=== PATIENT | male | born 1965 | race Two or more races ===

== ENCOUNTER → 2023-11-01 | Outpatient (CLI) | payer OTHER | END | disposition home or self-care (01) | LOC: XYW 09:30 | PROVIDERS: ATTEND Specialist | DX: C34.90 Malignant neoplasm of unspecified part of unspecified bronchus or lung (principal); R91.1 Solitary pulmonary nodule; D73.89 Other diseases of spleen | CPT/HCPCS: 71250 ==

== ENCOUNTER 2024-01-03 13:55 | Inpatient (IN) | payer OTHER ==
[~2024-01-03] VITALS: Ht 172.7 cm; Wt 94.9 kg
[2024-01-03 15:25] VITALS: BP 131/94; PULSE 91; RESP 18; TEMP 98.4; O2SAT 97
[2024-01-03] MEDS ORDERED: NITROGLYCERIN 0.4 MG SL TAB SL PRN (15:30)
[2024-01-03 16:24] LABS: Basophils # (auto) 0 10 ^3/uL (0-0.2); Basophils % (auto) 0.3 % (0.0-2.0); Eosinophils # (auto) 0.1 10 ^3/uL (0-0.8); Hematocrit 42.6 % (41.0-53.0); Hemoglobin 14.8 g/dL (13.5-17.5); Lymphocytes # (auto) 1.6 10 ^3/uL (0.4-5.4); Lymphocytes % (auto) 24.7 % (10.0-50.0); Mean Corpuscular Hgb Conc. 34.7 g/dL (32.0-36.0); Mean Corpuscular Volume 89.4 fL (80.0-100.0); Monocytes # (auto) 0.6 10 ^3/uL (0-1.3); Monocytes % (auto) 8.7 % (0.0-12.0); Neutrophils # (auto) 4.3 10 ^3/uL (1.6-8.6); Neutrophils % (auto) 65.3 % (37.0-80.0); Nucleated Red Blood Cells % 0.2 %; Platelet Count (auto) 223 10^3/uL (140-450); Red Blood Cells 4.76 10^6/uL (4.5-5.90); Red Cell Distribution Width 13.3 % (11.8-14.3); White Blood Cell 6.6 10^3/uL (4.4-10.8)
[2024-01-03 16:42] LABS: Alanine Aminotransferase 17 U/L (7-40); Albumin 4.2 g/dL (3.2-4.8); Alkaline Phosphatase 93 U/L (46-116); Anion Gap 9 (5-15); Aspartate Aminotransferase 17 U/L (13-40); BUN/Creatinine Ratio 12.5 (10.0-20.0); Bilirubin, Total 1.1 mg/dL (0.2-1.0); Blood Urea Nitrogen 16 mg/dL (9-23); Calcium 9.5 mg/dL (8.7-10.4); Carbon Dioxide 28 mmol/L (20-30); Chloride 105 mmol/L (98-107); Glucose 92 mg/dL (74-106); Potassium 2.9 mmol/L (3.5-5.1); Sodium 142 mmol/L (136-145); Total Protein 6.9 g/dL (5.7-8.2)
[2024-01-03 16:43] LABS: INR 1.07 (0.9-1.15); Prothrombin Time 11.3 sec (9.3-11.8)
[2024-01-03 17:01] VITALS: BP 145/93; PULSE 85; PULSE 91; RESP 18; TEMP 97.9; O2SAT 95; O2SAT 96
[2024-01-03 17:03] VITALS: BP 131/94; PULSE 91; RESP 18; TEMP 98.4; O2SAT 97
[2024-01-03] MEDS ORDERED: AMLO1TAB22 PO (17:18)
[2024-01-03] MEDS ORDERED: HYDR25TA4 PO (17:18)
[2024-01-03] MEDS ORDERED: ASPI325T6 PO (17:18)
[2024-01-03 19:06] LABS: LDL Cholesterol 78 mg/dL (< 100); Triglycerides 120 mg/dL (< 150)
[2024-01-03 19:08] LABS: Cholesterol 143 mg/dL (< 200); HDL Cholesterol 39 mg/dL (40-59)
[2024-01-03] MEDS: POTASSIUM CHL 20 Meq TABLET PO ONE (19:08)
[2024-01-03 20:00] VITALS: PULSE 97
[2024-01-03 20:35] LABS: Urine Bacteria None Seen /hpf (None Seen); Urine WBC None Seen /hpf (0 - 3)
[2024-01-03 20:48] LABS: Urine Blood Negative /uL (Negative); Urine Clarity Clear (Clear); Urine Color Light-Yellow (Yellow); Urine Protein, UAD Negative (Negative); Urine Specific Gravity 1.013 (1.001-1.035); Urine Urobilinogen Normal (Negative); Urine pH 7.5 (5.0-9.0)
[2024-01-03 21:00] VITALS: BP 142/100; PULSE 65; RESP 17; TEMP 97.8; O2SAT 96
[2024-01-03] MEDS: traMADol HCL 50 MG TAB PO PRN (21:24)
[2024-01-03] MEDS: amLODIPine BESYLATE 5 MG TAB PO SCH (21:24)
[2024-01-04] VITALS (7 sets, daily range): BP systolic 118–137; BP diastolic 79–86; PULSE 64–99; RESP 16–18; TEMP 97.8–98.4; O2SAT 94–99
[2024-01-04 07:07] LABS: Anion Gap 6 (5-15); Calcium 9.6 mg/dL (8.7-10.4); Carbon Dioxide 30 mmol/L (20-30); Chloride 104 mmol/L (98-107); Potassium 3.3 mmol/L (3.5-5.1); Sodium 140 mmol/L (136-145)
[2024-01-04 07:13] LABS: BUN/Creatinine Ratio 14.7 (10.0-20.0); Blood Urea Nitrogen 19 mg/dL (9-23); Glucose 94 mg/dL (74-106)
[2024-01-04 07:14] LABS: Magnesium 2.2 mg/dL (1.6-2.6)
[2024-01-04] MEDS ORDERED: levoFLOXacin 500MG 100 ML IV SCH (10:00)
[2024-01-04] MEDS: ENOXAPARIN SOD 40 MG/0.4 ML SYRINGE SC SCH (10:00)
[2024-01-04] MEDS: levoFLOXacin 500MG 100 ML IV SCH (10:50)
[2024-01-04] MEDS: POTASSIUM CHL 20 Meq TABLET PO ONE (11:02)
[2024-01-04] MEDS ORDERED: IOHEXOL 300 MG/ML 100ML BOTTLE IJ ONE (12:29)
[2024-01-05] VITALS (9 sets, daily range): BP systolic 108–131; BP diastolic 66–86; PULSE 71–81; RESP 16–20; TEMP 97.5–98.6; O2SAT 95–98
[2024-01-05 07:26] LABS: Basophils # (auto) 0 10 ^3/uL (0-0.2); Basophils % (auto) 0.2 % (0.0-2.0); Eosinophils # (auto) 0.1 10 ^3/uL (0-0.8); Eosinophils % (auto) 1.5 % (0.0-7.0); Hematocrit 44.9 % (41.0-53.0); Hemoglobin 15.5 g/dL (13.5-17.5); Lymphocytes # (auto) 1.5 10 ^3/uL (0.4-5.4); Mean Corpuscular Hemoglobin 31.3 pg (28.0-32.0); Mean Corpuscular Hgb Conc. 34.6 g/dL (32.0-36.0); Mean Corpuscular Volume 90.6 fL (80.0-100.0); Monocytes # (auto) 0.5 10 ^3/uL (0-1.3); Neutrophils # (auto) 3.8 10 ^3/uL (1.6-8.6); Neutrophils % (auto) 64.3 % (37.0-80.0); Platelet Count (auto) 218 10^3/uL (140-450); Red Blood Cells 4.95 10^6/uL (4.5-5.90); Red Cell Distribution Width 13.6 % (11.8-14.3); White Blood Cell 5.9 10^3/uL (4.4-10.8)
[2024-01-05 07:34] LABS: Chloride 105 mmol/L (98-107); Potassium 3.4 mmol/L (3.5-5.1); Sodium 141 mmol/L (136-145)
[2024-01-05 07:35] LABS: Anion Gap 8 (5-15); Carbon Dioxide 28 mmol/L (20-30)
[2024-01-05 07:36] LABS: Calcium 9.4 mg/dL (8.7-10.4)
[2024-01-05 07:40] LABS: BUN/Creatinine Ratio 13.4 (10.0-20.0); Blood Urea Nitrogen 17 mg/dL (9-23); Glucose 86 mg/dL (74-106)
[2024-01-05] MEDS: POTASSIUM CHL 20 Meq TABLET PO ONE (22:34)
[2024-01-06] VITALS (7 sets, daily range): BP systolic 118–134; BP diastolic 77–89; PULSE 69–82; RESP 16–20; TEMP 98–98.7; O2SAT 93–98
[2024-01-06 06:21] LABS: Basophils # (auto) 0 10 ^3/uL (0-0.2); Basophils % (auto) 0.3 % (0.0-2.0); Eosinophils # (auto) 0.1 10 ^3/uL (0-0.8); Eosinophils % (auto) 2.2 % (0.0-7.0); Hematocrit 44.4 % (41.0-53.0); Hemoglobin 15.3 g/dL (13.5-17.5); Lymphocytes # (auto) 1.7 10 ^3/uL (0.4-5.4); Lymphocytes % (auto) 29.2 % (10.0-50.0); Mean Corpuscular Hemoglobin 31.4 pg (28.0-32.0); Mean Corpuscular Hgb Conc. 34.5 g/dL (32.0-36.0); Mean Corpuscular Volume 90.8 fL (80.0-100.0); Monocytes # (auto) 0.5 10 ^3/uL (0-1.3); Monocytes % (auto) 8.7 % (0.0-12.0); Neutrophils # (auto) 3.5 10 ^3/uL (1.6-8.6); Neutrophils % (auto) 59.6 % (37.0-80.0); Nucleated Red Blood Cells % 0.1 %; Platelet Count (auto) 211 10^3/uL (140-450); Red Blood Cells 4.89 10^6/uL (4.5-5.90); Red Cell Distribution Width 13.5 % (11.8-14.3); White Blood Cell 5.8 10^3/uL (4.4-10.8)
[2024-01-06 06:35] LABS: Alanine Aminotransferase 13 U/L (7-40); Albumin 3.9 g/dL (3.2-4.8); Alkaline Phosphatase 93 U/L (46-116); Anion Gap 5 (5-15); Aspartate Aminotransferase 16 U/L (13-40); BUN/Creatinine Ratio 12.9 (10.0-20.0); Bilirubin, Total 0.7 mg/dL (0.2-1.0); Blood Urea Nitrogen 16 mg/dL (9-23); Calcium 9.3 mg/dL (8.7-10.4); Carbon Dioxide 28 mmol/L (20-30); Chloride 107 mmol/L (98-107); Glucose 94 mg/dL (74-106); Sodium 140 mmol/L (136-145); Total Protein 6.6 g/dL (5.7-8.2)
[2024-01-06] MEDS: DOBUTamine 1000MCG/ML 100 ML IV ONE ×2 (09:55→10:16)
[2024-01-06] MEDS: DOBUTamine 1000MCG/ML 250 ML IV ONE (10:03)
[2024-01-06] MEDS: METOPROLOL TARTRATE 1MG/1ML-5ML VIAL IV ONE (10:05)
[2024-01-06] MEDS: ATROPINE SULF 0.5 MG/5ML SYR ONE (10:06)
[2024-01-06] MEDS ORDERED: GADOTERATE MEG 10 MMOL/20ml INJ (0.5MMOL/ml) IV ONE (10:40)
[2024-01-07] VITALS (7 sets, daily range): BP systolic 116–137; BP diastolic 73–91; PULSE 76–100; RESP 17–20; TEMP 98–98.3; O2SAT 94–98
[2024-01-07 03:45] LABS: Basophils # (auto) 0 10 ^3/uL (0-0.2); Basophils % (auto) 0.5 % (0.0-2.0); Eosinophils # (auto) 0.1 10 ^3/uL (0-0.8); Eosinophils % (auto) 2.2 % (0.0-7.0); Hematocrit 43.9 % (41.0-53.0); Hemoglobin 15.3 g/dL (13.5-17.5); Lymphocytes # (auto) 1.5 10 ^3/uL (0.4-5.4); Lymphocytes % (auto) 23.5 % (10.0-50.0); Mean Corpuscular Hemoglobin 31.6 pg (28.0-32.0); Mean Corpuscular Hgb Conc. 34.7 g/dL (32.0-36.0); Mean Corpuscular Volume 91.1 fL (80.0-100.0); Monocytes # (auto) 0.5 10 ^3/uL (0-1.3); Monocytes % (auto) 7.5 % (0.0-12.0); Neutrophils # (auto) 4.3 10 ^3/uL (1.6-8.6); Neutrophils % (auto) 66.3 % (37.0-80.0); Platelet Count (auto) 215 10^3/uL (140-450); Red Blood Cells 4.82 10^6/uL (4.5-5.90); Red Cell Distribution Width 13.6 % (11.8-14.3); White Blood Cell 6.6 10^3/uL (4.4-10.8)
[2024-01-07 03:57] LABS: Alanine Aminotransferase 14 U/L (7-40); Albumin 3.9 g/dL (3.2-4.8); Alkaline Phosphatase 94 U/L (46-116); Anion Gap 5 (5-15); Aspartate Aminotransferase 17 U/L (13-40); BUN/Creatinine Ratio 10.5 (10.0-20.0); Bilirubin, Total 1.1 mg/dL (0.2-1.0); Blood Urea Nitrogen 14 mg/dL (9-23); Calcium 9.3 mg/dL (8.7-10.4); Carbon Dioxide 27 mmol/L (20-30); Chloride 106 mmol/L (98-107); Glucose 98 mg/dL (74-106); Potassium 3.6 mmol/L (3.5-5.1); Sodium 138 mmol/L (136-145); Total Protein 6.6 g/dL (5.7-8.2)
[2024-01-07 03:59] LABS: INR 1.08 (0.9-1.15); Partial Thromboplastin Time 29.1 SEC (24.5-34.5); Prothrombin Time 11.4 sec (9.3-11.8)
[2024-01-07 05:05] LABS: Urine Bacteria FEW /hpf (None Seen); Urine Blood Negative /uL (Negative); Urine Clarity Clear (Clear); Urine Color Yellow (Yellow); Urine Mucus FEW (None Seen); Urine Protein, UAD Negative (Negative); Urine Specific Gravity 1.025 (1.001-1.035); Urine Sperm PRESENT /hpf (None Seen); Urine Urobilinogen Normal (Negative); Urine WBC 1 /hpf (0 - 3); Urine pH 5.5 (5.0-9.0)
[2024-01-07] MEDS: PANTOPRAZOLE 40 MG/10 ML VIAL INJ IV ONE (07:41)
[2024-01-07 08:06] LABS: PSA Free 0.15 ng/mL; Prostate Specific Antigen 0.8 ng/mL (0.0-4.0)
[2024-01-07] MEDS ORDERED: GADOTERATE MEG 10 MMOL/20ml INJ (0.5MMOL/ml) IV ONE (08:42)
[2024-01-07] MEDS ORDERED: MIDAZOLAM HCL 2MG/2ML 2ml VIAL (1mg/ml) ONE (11:51)
[2024-01-07] MEDS ORDERED: fentaNYL CITRATE 100 MCG/2 ML VL ONE (11:51)
[2024-01-07] MEDS ORDERED: MEPERIDINE HCL (50 MG/ML) 1 ML VIAL ONE (11:51)
[2024-01-07] MEDS: ceFAZolin 2 GM/D5W50ml 50 ML IV ONE (12:08)
[2024-01-07] MEDS: LIDOCAINE W/ EPINEPHRINE 1% 20ML VIAL ONE (12:10)
[2024-01-07] MEDS ORDERED: DexAMETHasone SOD PHOS 10MG/1ML VIAL INJ ONE (12:15)
[2024-01-07] MEDS ORDERED: PROPOFOL 10 MG/ML 20 ML IV ONE (12:29)
[2024-01-07] MEDS: BACITRACIN TOP OINT 1 UD PKG TOP ONE (13:17)
[2024-01-07] MEDS ORDERED: MIDAZOLAM HCL 2MG/2ML 2ml VIAL (1mg/ml) IV PRN (13:45)
[2024-01-07] MEDS ORDERED: ePHEDrine SULFATE 50 MG/ML AMP IV PRN (13:45)
[2024-01-07] MEDS: ONDANSETRON HCL 4 MG/2 ML VIAL IV ONE (13:45)
[2024-01-07] MEDS ORDERED: MORPHINE SULFATE 4 MG/ML SYR/VIAL IV PRN (13:45)
[2024-01-07] MEDS: HYDROmorphone HCL 2 MG/ML VL/or syr IV PRN (14:10)
[2024-01-07] MEDS: ceFAZolin 1GM/50ML 50 ML IV SCH (16:06)
[2024-01-07] MEDS: ACETAMINOPHEN 325 MG TAB PO PRN (22:36)
[2024-01-07] MEDS: KETOROLAC TROMETH 30 MG/ML 1ML VIAL IV ONE (23:07)
[2024-01-08] VITALS (7 sets, daily range): BP systolic 115–138; BP diastolic 72–87; PULSE 73–87; RESP 16–21; TEMP 97.7–98.7; O2SAT 92–95
[2024-01-08] MEDS: MORPHINE SULFATE INJ 2 MG/ml SYRG IV ONE (04:33)
[2024-01-08] MEDS: PANTOPRAZOLE 40 MG/10 ML VIAL INJ IV SCH (09:17)
[2024-01-08 09:18] LABS: Basophils # (auto) 0 10 ^3/uL (0-0.2); Basophils % (auto) 0.2 % (0.0-2.0); Eosinophils # (auto) 0 10 ^3/uL (0-0.8); Hematocrit 44.5 % (41.0-53.0); Hemoglobin 15.2 g/dL (13.5-17.5); Lymphocytes # (auto) 0.8 10 ^3/uL (0.4-5.4); Lymphocytes % (auto) 6.1 % (10.0-50.0); Mean Corpuscular Hgb Conc. 34.2 g/dL (32.0-36.0); Mean Corpuscular Volume 90.6 fL (80.0-100.0); Monocytes # (auto) 0.7 10 ^3/uL (0-1.3); Monocytes % (auto) 5.3 % (0.0-12.0); Neutrophils # (auto) 11.1 10 ^3/uL (1.6-8.6); Neutrophils % (auto) 88.4 % (37.0-80.0); Nucleated Red Blood Cells % 0.1 %; Platelet Count (auto) 231 10^3/uL (140-450); Red Blood Cells 4.91 10^6/uL (4.5-5.90); Red Cell Distribution Width 13.6 % (11.8-14.3); White Blood Cell 12.5 10^3/uL (4.4-10.8)
[2024-01-08] MEDS: MORPHINE SULFATE INJ 2 MG/ml SYRG IV PRN (09:27)
[2024-01-08 09:39] LABS: Alanine Aminotransferase 13 U/L (7-40); Albumin 4.5 g/dL (3.2-4.8); Alkaline Phosphatase 107 U/L (46-116); Anion Gap 8 (5-15); Aspartate Aminotransferase 20 U/L (13-40); BUN/Creatinine Ratio 13.2 (10.0-20.0); Blood Urea Nitrogen 17 mg/dL (9-23); Calcium 9.7 mg/dL (8.7-10.4); Carbon Dioxide 24 mmol/L (20-30); Chloride 107 mmol/L (98-107); Glucose 104 mg/dL (74-106); Potassium 3.6 mmol/L (3.5-5.1); Sodium 139 mmol/L (136-145)
[2024-01-08 09:40] LABS: Total Protein 7.2 g/dL (5.7-8.2)
[2024-01-09] VITALS (7 sets, daily range): BP systolic 118–131; BP diastolic 75–87; PULSE 60–83; RESP 16–21; TEMP 97.4–98.6; O2SAT 92–97
[2024-01-09] MEDS: DOCUSATE SOD 100 MG CAP PO PRN (00:20)
[2024-01-09 05:23] LABS: Basophils # (auto) 0 10 ^3/uL (0-0.2); Basophils % (auto) 0.2 % (0.0-2.0); Eosinophils # (auto) 0 10 ^3/uL (0-0.8); Eosinophils % (auto) 0.3 % (0.0-7.0); Hematocrit 40.8 % (41.0-53.0); Lymphocytes % (auto) 24.5 % (10.0-50.0); Mean Corpuscular Hemoglobin 31.2 pg (28.0-32.0); Mean Corpuscular Hgb Conc. 34.4 g/dL (32.0-36.0); Mean Corpuscular Volume 90.6 fL (80.0-100.0); Monocytes # (auto) 0.6 10 ^3/uL (0-1.3); Monocytes % (auto) 7.6 % (0.0-12.0); Neutrophils # (auto) 5.5 10 ^3/uL (1.6-8.6); Neutrophils % (auto) 67.4 % (37.0-80.0); Platelet Count (auto) 200 10^3/uL (140-450); Red Cell Distribution Width 13.9 % (11.8-14.3); White Blood Cell 8.1 10^3/uL (4.4-10.8)
[2024-01-09 05:40] LABS: Chloride 109 mmol/L (98-107); Potassium 3.6 mmol/L (3.5-5.1); Sodium 141 mmol/L (136-145)
[2024-01-09 05:41] LABS: Anion Gap 8 (5-15); Carbon Dioxide 24 mmol/L (20-30)
[2024-01-09 05:42] LABS: Calcium 8.8 mg/dL (8.7-10.4)
[2024-01-09 05:46] LABS: BUN/Creatinine Ratio 11.6 (10.0-20.0); Blood Urea Nitrogen 14 mg/dL (9-23); Glucose 92 mg/dL (74-106)
[2024-01-10] VITALS (7 sets, daily range): BP systolic 127–141; BP diastolic 81–86; PULSE 65–74; RESP 15–21; TEMP 97.8–98.7; O2SAT 21–96
[2024-01-10] MEDS: MORPHINE SULFATE INJ 2 MG/ml SYRG IV PRN (05:24)
[2024-01-11 01:00] VITALS: BP 130/82; PULSE 68; RESP 21; TEMP 98.1; O2SAT 97
[2024-01-11 05:00] VITALS: BP 142/90; PULSE 77; RESP 20; TEMP 97.9; O2SAT 96
[2024-01-11 05:22] LABS: Basophils # (auto) 0 10 ^3/uL (0-0.2); Basophils % (auto) 0.4 % (0.0-2.0); Eosinophils # (auto) 0.1 10 ^3/uL (0-0.8); Eosinophils % (auto) 1.9 % (0.0-7.0); Hematocrit 44.8 % (41.0-53.0); Hemoglobin 15.6 g/dL (13.5-17.5); Lymphocytes # (auto) 1.6 10 ^3/uL (0.4-5.4); Lymphocytes % (auto) 23.8 % (10.0-50.0); Mean Corpuscular Hemoglobin 31.6 pg (28.0-32.0); Mean Corpuscular Hgb Conc. 34.7 g/dL (32.0-36.0); Monocytes # (auto) 0.5 10 ^3/uL (0-1.3); Monocytes % (auto) 7.3 % (0.0-12.0); Neutrophils # (auto) 4.4 10 ^3/uL (1.6-8.6); Neutrophils % (auto) 66.6 % (37.0-80.0); Platelet Count (auto) 202 10^3/uL (140-450); Red Blood Cells 4.93 10^6/uL (4.5-5.90); Red Cell Distribution Width 13.6 % (11.8-14.3); White Blood Cell 6.7 10^3/uL (4.4-10.8)
[2024-01-11 05:31] LABS: Chloride 106 mmol/L (98-107); Potassium 3.6 mmol/L (3.5-5.1); Sodium 139 mmol/L (136-145)
[2024-01-11 05:32] LABS: Anion Gap 4 (5-15); Calcium 9.1 mg/dL (8.7-10.4); Carbon Dioxide 29 mmol/L (20-30)
[2024-01-11 05:37] LABS: BUN/Creatinine Ratio 10.5 (10.0-20.0); Blood Urea Nitrogen 12 mg/dL (9-23); Glucose 90 mg/dL (74-106)
[2024-01-11 08:32] VITALS: BP 113/78; PULSE 79; RESP 18; TEMP 98; O2SAT 94
[2024-01-11] MEDS: LACTULOSE 20Gm/30ML SOLN PO ONE (10:10)
[2024-01-11 12:30] VITALS: BP 139/89; PULSE 70; RESP 19; TEMP 97.9; O2SAT 97
[2024-01-11 16:44] VITALS: BP 135/83; PULSE 81; RESP 19; TEMP 97.6; O2SAT 94
[2024-01-11 21:00] VITALS: BP 121/84; PULSE 73; RESP 18; TEMP 98.1; O2SAT 96
[2024-01-12] VITALS (7 sets, daily range): BP systolic 127–133; BP diastolic 78–90; PULSE 74–80; RESP 18–19; TEMP 97.9–99.1; O2SAT 95–98
[2024-01-13] VITALS (8 sets, daily range): BP systolic 117–140; BP diastolic 74–93; PULSE 66–82; RESP 11–20; TEMP 98–98.6; O2SAT 95–97
[2024-01-13 03:29] LABS: Urine Bacteria None Seen /hpf (None Seen); Urine WBC None Seen /hpf (0 - 3)
[2024-01-13 03:34] LABS: Urine Blood Negative /uL (Negative); Urine Clarity Clear (Clear); Urine Color Light-Yellow (Yellow); Urine Protein, UAD Negative (Negative); Urine Urobilinogen Normal (Negative); Urine pH 6.5 (5.0-9.0)
[2024-01-13 05:44] LABS: Basophils # (auto) 0 10 ^3/uL (0-0.2); Basophils % (auto) 0.4 % (0.0-2.0); Eosinophils # (auto) 0.1 10 ^3/uL (0-0.8); Eosinophils % (auto) 2.9 % (0.0-7.0); Hematocrit 43.7 % (41.0-53.0); Hemoglobin 15.2 g/dL (13.5-17.5); Lymphocytes # (auto) 1.5 10 ^3/uL (0.4-5.4); Mean Corpuscular Hemoglobin 31.6 pg (28.0-32.0); Mean Corpuscular Hgb Conc. 34.8 g/dL (32.0-36.0); Mean Corpuscular Volume 90.7 fL (80.0-100.0); Monocytes # (auto) 0.5 10 ^3/uL (0-1.3); Monocytes % (auto) 10.1 % (0.0-12.0); Neutrophils % (auto) 57.6 % (37.0-80.0); Platelet Count (auto) 195 10^3/uL (140-450); Red Blood Cells 4.82 10^6/uL (4.5-5.90); Red Cell Distribution Width 13.4 % (11.8-14.3); White Blood Cell 5.1 10^3/uL (4.4-10.8)
[2024-01-13 05:51] LABS: Calcium 9.1 mg/dL (8.7-10.4); Chloride 107 mmol/L (98-107); Potassium 3.6 mmol/L (3.5-5.1); Sodium 140 mmol/L (136-145)
[2024-01-13 05:52] LABS: Anion Gap 5 (5-15); Carbon Dioxide 28 mmol/L (20-30)
[2024-01-13 05:57] LABS: BUN/Creatinine Ratio 8.5 (10.0-20.0); Blood Urea Nitrogen 10 mg/dL (9-23); Glucose 88 mg/dL (74-106)
[2024-01-13] MEDS ORDERED: ACETAMINOPHEN IV 1000 MG/100ML (10MG/ML) IV ONE (12:30)
[2024-01-13] MEDS ORDERED: CELECOXIB 100 MG CAP PO ONE (12:30)
[2024-01-13] MEDS ORDERED: GABAPENTIN 400 MG CAP PO ONE (12:30)
[2024-01-13] MEDS ORDERED: ONDANSETRON HCL 4 MG/2 ML VIAL ONE (12:35)
[2024-01-13] MEDS ORDERED: LIDOCAINE 2% (LOCAL ANESTH.) PF 5ml SDV ONE (12:35)
[2024-01-13] MEDS ORDERED: DexAMETHasone SOD PHOS 10MG/1ML VIAL INJ ONE ×2 (12:35→12:42)
[2024-01-13] MEDS ORDERED: KETOROLAC TROMETH 30 MG/ML 1ML VIAL ONE (12:35)
[2024-01-13] MEDS ORDERED: SUGAMMADEX 200mg/2ml Vial (100MG/ML) IV ONE (12:36)
[2024-01-13] MEDS ORDERED: ROCURONIUM 10MG/ML 10ML VIAL IV ONE (12:36)
[2024-01-13] MEDS ORDERED: KETAMINE 50mg/ML 1ml syringe ONE (12:36)
[2024-01-13] MEDS ORDERED: PROPOFOL 10 MG/ML 20 ML IV ONE (12:36)
[2024-01-13] MEDS ORDERED: GLYCOPYRROLATE 0.2 MG/ML 1ML VIAL ONE (12:36)
[2024-01-13] MEDS ORDERED: fentaNYL CITRATE 100 MCG/2 ML VL ONE (12:36)
[2024-01-13] MEDS ORDERED: LIDOCAINE 2% JELLY 11ml (GLYDO) ONE (12:45)
[2024-01-13] MEDS ORDERED: LIDOCAINE W/ EPINEPHRINE 1% 20ML VIAL ONE (13:20)
[2024-01-13] MEDS ORDERED: BUPIVACAINE 0.25% INJ 50ML VIAL ONE ×2 (13:20→13:25)
[2024-01-13] MEDS ORDERED: MANNITOL FTV 25% 12.5 GM/50 ML 0 ML IV ONE (13:20)
[2024-01-13] MEDS ORDERED: cefTRIAXone 1GM/50ML D5W 50 ML IV ONE (13:44)
[2024-01-13] MEDS ORDERED: ESMOLOL HCL 10 ML IV ONE (14:10)
[2024-01-13] MEDS ORDERED: ePHEDrine SULFATE 50 MG/ML AMP ONE (14:49)
[2024-01-13] MEDS ORDERED: HYDROmorphone HCL 2 MG/ML VL/or syr ONE (15:52)
[2024-01-13] MEDS: HYDROmorphone HCL 2 MG/ML VL/or syr IV PRN (16:00)
[2024-01-13] MEDS ORDERED: MORPHINE SULFATE 4 MG/ML SYR/VIAL IV PRN (16:15)
[2024-01-13] MEDS ORDERED: MIDAZOLAM HCL 2MG/2ML 2ml VIAL (1mg/ml) IV PRN (16:15)
[2024-01-13] MEDS ORDERED: ePHEDrine SULFATE 50 MG/ML AMP IV PRN (16:15)
[2024-01-13] MEDS ORDERED: ONDANSETRON HCL 4 MG/2 ML VIAL IV ONE (16:15)
[2024-01-13] MEDS: LACTATED RINGER'S 1,000 ML IV SCH (22:25)
[2024-01-13] MEDS: MAALOX PLUS or MAALOX 30 ML PO PRN (22:57)
[2024-01-14] VITALS (8 sets, daily range): BP systolic 137–153; BP diastolic 84–98; PULSE 81–94; RESP 17–20; TEMP 98.1–99.3; O2SAT 93–98
[2024-01-14 06:38] LABS: Hematocrit 42.4 % (41.0-53.0); Mean Corpuscular Hemoglobin 31.9 pg (28.0-32.0); Mean Corpuscular Hgb Conc. 35.3 g/dL (32.0-36.0); Mean Corpuscular Volume 90.5 fL (80.0-100.0); Platelet Count (auto) 199 10^3/uL (140-450); Red Blood Cells 4.69 10^6/uL (4.5-5.90); Red Cell Distribution Width 13.5 % (11.8-14.3); White Blood Cell 12.3 10^3/uL (4.4-10.8)
[2024-01-14 06:39] LABS: Anion Gap 8 (5-15); Calcium 9.8 mg/dL (8.7-10.4); Carbon Dioxide 26 mmol/L (20-30); Chloride 103 mmol/L (98-107); Potassium 3.8 mmol/L (3.5-5.1); Sodium 137 mmol/L (136-145)
[2024-01-14 06:45] LABS: BUN/Creatinine Ratio 8.9 (10.0-20.0); Blood Urea Nitrogen 19 mg/dL (9-23); Glucose 126 mg/dL (74-106)
[2024-01-14 07:02] LABS: Basophils % (manual) 0 (0.0-2.0); Blast Cells 0; Eosinophils % (manual) 0 (0-7); Metamyelocytes % 0; Myelocytes % 0; Promyelocytes % 0; Reactive Lymphocytes 0
[2024-01-14] MEDS ORDERED: METOCLOPRAMIDE HCL 5MG/ml INJ 2ml VIAL IV PRN (08:00)
[2024-01-14 08:30] LABS: Band Neutrophils % (manual) 4; Lymphocytes % (manual) 5 (10.0-50.0); Monocytes % (manual) 1 (0-12)
[2024-01-14 08:31] LABS: Platelet Estimate Adequate
[2024-01-14] MEDS: LACTULOSE 20Gm/30ML SOLN PO SCH (09:56)
[2024-01-14] MEDS: HYDROcodone-ACET 10/325MG TAB PO PRN (20:21)
[2024-01-15 01:00] VITALS: BP 136/80; PULSE 80; RESP 18; TEMP 98.7; O2SAT 94
[2024-01-15 04:58] VITALS: BP 122/77; PULSE 78; RESP 18; TEMP 97.3; O2SAT 93
[2024-01-15 05:13] LABS: Basophils # (auto) 0 10 ^3/uL (0-0.2); Basophils % (auto) 0.4 % (0.0-2.0); Eosinophils # (auto) 0 10 ^3/uL (0-0.8); Eosinophils % (auto) 0.2 % (0.0-7.0); Hematocrit 41.7 % (41.0-53.0); Hemoglobin 14.6 g/dL (13.5-17.5); Lymphocytes # (auto) 1.3 10 ^3/uL (0.4-5.4); Lymphocytes % (auto) 12.4 % (10.0-50.0); Mean Corpuscular Hemoglobin 31.5 pg (28.0-32.0); Mean Corpuscular Volume 89.9 fL (80.0-100.0); Monocytes # (auto) 0.8 10 ^3/uL (0-1.3); Monocytes % (auto) 7.8 % (0.0-12.0); Neutrophils # (auto) 8.4 10 ^3/uL (1.6-8.6); Neutrophils % (auto) 79.2 % (37.0-80.0); Nucleated Red Blood Cells % 0.1 %; Platelet Count (auto) 170 10^3/uL (140-450); Red Blood Cells 4.63 10^6/uL (4.5-5.90); Red Cell Distribution Width 13.5 % (11.8-14.3); White Blood Cell 10.6 10^3/uL (4.4-10.8)
[2024-01-15 05:23] LABS: Anion Gap 7 (5-15); Carbon Dioxide 27 mmol/L (20-30); Chloride 106 mmol/L (98-107); Potassium 3.8 mmol/L (3.5-5.1); Sodium 140 mmol/L (136-145)
[2024-01-15 05:24] LABS: Calcium 9.4 mg/dL (8.7-10.4)
[2024-01-15 05:29] LABS: BUN/Creatinine Ratio 8.4 (10.0-20.0); Blood Urea Nitrogen 17 mg/dL (9-23); Glucose 98 mg/dL (74-106)
[2024-01-15 08:00] VITALS: BP 142/87; PULSE 84; RESP 16; TEMP 98.8; O2SAT 94
[2024-01-15] MEDS: METOPROLOL SUCCINATE XL 50 MG TAB PO SCH (09:12)
[2024-01-15 11:30] VITALS: BP_SYST 133; BP_SYST 168; BP_DIAS 81; BP_DIAS 90; PULSE 47; RESP 16; TEMP 98.6; O2SAT 98
[2024-01-15 16:38] VITALS: BP 133/89; PULSE 84; RESP 17; TEMP 98.8; O2SAT 98
[2024-01-15] MEDS: LACTULOSE 20Gm/30ML SOLN PO SCH (17:29)
[2024-01-15] MEDS: DOCUSATE SOD 100 MG CAP PO SCH (17:29)
[2024-01-15 21:00] VITALS: BP 150/99; PULSE 89; RESP 20; TEMP 98.3; O2SAT 93
[2024-01-16] VITALS (7 sets, daily range): BP systolic 136–151; BP diastolic 85–101; PULSE 81–107; RESP 16–20; TEMP 98–99.8; O2SAT 93–95
[2024-01-16 06:48] LABS: Basophils # (auto) 0 10 ^3/uL (0-0.2); Basophils % (auto) 0.1 % (0.0-2.0); Eosinophils # (auto) 0 10 ^3/uL (0-0.8); Eosinophils % (auto) 0.4 % (0.0-7.0); Hematocrit 40.4 % (41.0-53.0); Hemoglobin 14.2 g/dL (13.5-17.5); Lymphocytes # (auto) 1.2 10 ^3/uL (0.4-5.4); Lymphocytes % (auto) 11.5 % (10.0-50.0); Mean Corpuscular Hemoglobin 31.9 pg (28.0-32.0); Mean Corpuscular Hgb Conc. 35.2 g/dL (32.0-36.0); Mean Corpuscular Volume 90.5 fL (80.0-100.0); Monocytes # (auto) 0.8 10 ^3/uL (0-1.3); Monocytes % (auto) 7.9 % (0.0-12.0); Neutrophils # (auto) 8.1 10 ^3/uL (1.6-8.6); Neutrophils % (auto) 80.1 % (37.0-80.0); Platelet Count (auto) 164 10^3/uL (140-450); Red Blood Cells 4.46 10^6/uL (4.5-5.90); Red Cell Distribution Width 13.2 % (11.8-14.3); White Blood Cell 10.2 10^3/uL (4.4-10.8)
[2024-01-16 06:49] LABS: Alanine Aminotransferase 11 U/L (7-40); Albumin 3.9 g/dL (3.2-4.8); Alkaline Phosphatase 86 U/L (46-116); Anion Gap 10 (5-15); Aspartate Aminotransferase 26 U/L (13-40); BUN/Creatinine Ratio 7.8 (10.0-20.0); Blood Urea Nitrogen 15 mg/dL (9-23); Calcium 9.1 mg/dL (8.7-10.4); Carbon Dioxide 26 mmol/L (20-30); Chloride 104 mmol/L (98-107); Glucose 97 mg/dL (74-106); Potassium 3.7 mmol/L (3.5-5.1); Sodium 140 mmol/L (136-145)
[2024-01-16 06:50] LABS: Bilirubin, Total 1.7 mg/dL (0.2-1.0); Total Protein 6.6 g/dL (5.7-8.2)
== END 2024-01-16 23:35 | DRG 658 ==
LOC: EEVIPCON → UNDOADMIN 15:16 → TELE-CENTR 15:16 → EEVIPCON 15:24 → CENTRAL 17:58
PROVIDERS: ADMIT Internal Medicine Geriatric Medicine; ATTEND Internal Medicine
PROC: 0VBG0ZZ Excision of Left Spermatic Cord, Open Approach (ICD-10-PCS; principal; 2024-01-07 12:10)
PROC: 0VBB0ZZ Excision of Left Testis, Open Approach (ICD-10-PCS; 2024-01-07 12:10)
PROC: 0TT14ZZ Resection of Left Kidney, Percutaneous Endoscopic Approach (ICD-10-PCS; 2024-01-14)
PROC: 8E0W4CZ Robotic Assisted Procedure of Trunk Region, Percutaneous Endoscopic Approach (ICD-10-PCS; 2024-01-14)
DX: C64.2 Malignant neoplasm of left kidney, except renal pelvis (principal); N43.3 Hydrocele, unspecified; C62.92 Malignant neoplasm of left testis, unspecified whether descended or undescended; N50.9 Disorder of male genital organs, unspecified; I10 Essential (primary) hypertension; E66.9 Obesity, unspecified; E87.6 Hypokalemia; D18.03 Hemangioma of intra-abdominal structures; N28.89 Other specified disorders of kidney and ureter; E86.0 Dehydration; D72.829 Elevated white blood cell count, unspecified; Z79.82 Long term (current) use of aspirin; Z79.899 Other long term (current) drug therapy; Z68.31 Body mass index [BMI] 31.0-31.9, adult
CPT/HCPCS: 36415; 70553; 71045; 71250; 74178; 74183; 76870; 80048; 80053; 80061; 81001; 82105; 83036; 83615; 83735; 83880; 84154; 84443; 84702; 85007; 85025; 85027; 85610; 85730; 86850; 86900; 86901; 87081; 93005; 93017; 93306; 93350; G0378; J0131; J0461; J1100; J1885; J1956; J2001; J2250; J2405; J2470; J2704; J3490